=== PATIENT | female | born 1990 | race Caucasian/White ===

== ENCOUNTER 2018-11-19 19:00 | Inpatient (IN) | payer OTHER ==
[2018-11-19 20:02] LABS: ADD UMIC NO; UR ASCORBIC ACID NEGATIVE (NEGATIVE); UR BILIRUBIN (Dip) NEGATIVE (NEGATIVE); UR BLOOD (Dip) NEGATIVE (NEGATIVE); UR CLARITY CLEAR (CLEAR); UR COLOR STRAW (YELLOW); UR GLUCOSE (Dip) NEGATIVE (NEGATIVE); UR KETONES (Dip) NEGATIVE (NEGATIVE); UR LEUKOCYTE ESTERASE (Dip) NEGATIVE Leu/ul (NEGATIVE); UR NITRITE (Dip) NEGATIVE (NEGATIVE); UR SPECIFIC GRAVITY (Dip) 1.009 (1.003-1.030); UR TOTAL PROTEIN (Dip) NEGATIVE (NEGATIVE); UR UROBILINOGEN (Dip) NEGATIVE (NEGATIVE)
[2018-11-19] MEDS ORDERED: METOCLOPRAMIDE 10 MG INJ IV (22:00)
[2018-11-19] MEDS ORDERED: ONDANSETRON 4 MG INJ IV (22:00)
[2018-11-19] MEDS ORDERED: DIPHENHYDRAMINE 25 MG CAP PO (22:00)
[2018-11-19] MEDS ORDERED: ACETAMINOPHEN 325 MG TAB PO (22:00)
[2018-11-19] MEDS: LACTATED RINGER'S 1,000 ML IV (22:18)
[2018-11-19 22:24] LABS: ADD MAN DIFF? NO
[2018-11-19 22:28] LABS: BASOPHILS % 0.1 % (0.0-2.0); EOSINOPHILS # 0.2 10^3/ul (0.0-0.5); EOSINOPHILS % 1.9 % (0.0-7.0); HEMOGLOBIN 12.6 g/dl (12.0-16.0); LYMPHOCYTES # 2.1 10^3/ul (0.8-2.9); LYMPHOCYTES % 24.2 % (15.0-51.0); MEAN CORPUSCULAR HEMOGLOBIN 31.7 pg (29.0-33.0); MEAN CORPUSCULAR HGB CONC 34.1 g/dl (32.0-37.0); MONOCYTE # 0.6 10^3/ul (0.3-0.9); MONOCYTES % 7.4 % (0.0-11.0); NEUTROPHIL # 5.7 10^3/ul (1.6-7.5); NEUTROPHILS % 65.9 % (39.0-77.0); PLATELET COUNT 175 10^3/UL (140-415); RED BLOOD COUNT 3.98 10^6/ul (4.20-5.40); RED CELL DISTRIBUTION WIDTH 12.5 % (11.5-14.5)
[2018-11-19 22:28] LABS: WHITE BLOOD COUNT 8.6 10^3/ul (4.8-10.8)
[2018-11-19 22:44] LABS: ALANINE AMINOTRANSFERASE 20 IU/L (13-69); ALBUMIN 3.6 g/dl (3.3-4.9); ALBUMIN/GLOBULIN RATIO 1.16; ALKALINE PHOSPHATASE 85 IU/L (42-121); ANION GAP 12 (5-13); ASPARTATE AMINO TRANSFERASE 23 IU/L (15-46); BILIRUBIN,INDIRECT 0.1 mg/dl (0-1.1); BILIRUBIN,TOTAL 0.1 mg/dl (0.2-1.3); BLOOD UREA NITROGEN 7 mg/dl (7-20); CALCIUM 9.9 mg/dl (8.4-10.2); CARBON DIOXIDE 23 mmol/L (21-31); CHLORIDE 104 mmol/L (97-110); CREATININE 0.54 mg/dl (0.44-1.00); Estimated GFR > 60 mL/min (>60); GLUCOSE 85 mg/dl (70-220); POTASSIUM 3.8 mmol/L (3.5-5.1); SODIUM 139 mmol/L (135-144); TOTAL PROTEIN 6.7 g/dl (6.1-8.1)
[2018-11-20] MEDS: AL HYDROX/MG HYDROX/SIMETH 30 ML CUP PO ×3 (00:57→18:37)
[2018-11-20] MEDS: LACTATED RINGER'S 1,000 ML IV ×3 (03:27→18:37)
[2018-11-20] MEDS: PRENATAL VITAMIN PO (10:18)
[2018-11-20] MEDS: URSODIOL 300 MG CAP PO ×2 (12:04→21:13)
[2018-11-21] MEDS: LACTATED RINGER'S 1,000 ML IV (04:34)
[2018-11-24 20:03] LABS: CHENODEOXYCHOLIC ACID <0.5 umol/L (< OR = 3.1); CHOLIC ACID <0.5 umol/L (< OR = 1.8); DEOXYCHOLIC ACID <0.5 umol/L (< OR = 2.4); TOTAL BILE ACIDS <1.5 umol/L (< OR = 6.8)
== END 2018-11-21 08:45 | disposition home or self-care (01) | DRG 833 ==
LOC: OBT 19:00 → L-D 11-20 00:51 → OBT 21:58 → L-D 21:52
DX: O36.8130 Decreased fetal movements, third trimester, not applicable or unspecified (principal); Z3A.36 36 weeks gestation of pregnancy; O26.893 Other specified pregnancy related conditions, third trimester; L29.9 Pruritus, unspecified
CPT/HCPCS: 76815; 76818; 76820; 80053; 81003; 83789; 85025

== ENCOUNTER 2018-11-29 20:21 | Outpatient (CLI) | payer OTHER | END 2018-11-29 23:45 | disposition home or self-care (01) | LOC: OBT 20:21 → L-D 20:21 | DX: O36.8130 Decreased fetal movements, third trimester, not applicable or unspecified (principal); Z3A.37 37 weeks gestation of pregnancy | CPT/HCPCS: 76818 ==

== ENCOUNTER 2018-12-09 10:14 | Outpatient (CLI) | payer OTHER | END 2018-12-09 12:46 | disposition home or self-care (01) | LOC: OBT 10:14 → L-D 10:14 → OBT 12:46 | DX: O47.1 False labor at or after 37 completed weeks of gestation (principal); O36.8130 Decreased fetal movements, third trimester, not applicable or unspecified; Z3A.39 39 weeks gestation of pregnancy | CPT/HCPCS: 76815; 76818 ==

== ENCOUNTER 2018-12-10 06:05 | Inpatient (IN) | payer OTHER ==
[2018-12-10] MEDS ORDERED: BUTORPHANOL 2 MG INJ IV (07:00)
[2018-12-10] MEDS ORDERED: METHYLERGONOVINE 0.2 MG INJ IM (07:00)
[2018-12-10] MEDS ORDERED: CARBOPROST 250 MCG INJ IM (07:00)
[2018-12-10] MEDS ORDERED: MISOPROSTOL 200 MCG TAB PR (07:00)
[2018-12-10] MEDS ORDERED: OXYTOCIN 30 UNITS/LR 500 ML IV ×2 (07:00)
[2018-12-10] MEDS ORDERED: LIDOCAINE 1% (MPF) 30 ML INJ INJ (07:00)
[2018-12-10] MEDS ORDERED: IBUPROFEN 600 MG TAB PO (07:00)
[2018-12-10 07:54] LABS: ADD MAN DIFF? NO
[2018-12-10 07:57] LABS: BASOPHILS % 0.2 % (0.0-2.0); EOSINOPHILS # 0.1 10^3/ul (0.0-0.5); EOSINOPHILS % 1.4 % (0.0-7.0); HEMATOCRIT 37.9 % (37.0-47.0); HEMOGLOBIN 12.8 g/dl (12.0-16.0); LYMPHOCYTES # 1.6 10^3/ul (0.8-2.9); LYMPHOCYTES % 17.5 % (15.0-51.0); MEAN CORPUSCULAR HEMOGLOBIN 31.7 pg (29.0-33.0); MEAN CORPUSCULAR HGB CONC 33.8 g/dl (32.0-37.0); MEAN CORPUSCULAR VOLUME 93.8 fl (82.0-101.0); MEAN PLATELET VOLUME 11.3 fl (7.4-10.4); MONOCYTE # 0.6 10^3/ul (0.3-0.9); MONOCYTES % 6.9 % (0.0-11.0); NEUTROPHIL # 6.8 10^3/ul (1.6-7.5); NEUTROPHILS % 73.6 % (39.0-77.0); PLATELET COUNT 173 10^3/UL (140-415); RED BLOOD COUNT 4.04 10^6/ul (4.20-5.40); RED CELL DISTRIBUTION WIDTH 12.6 % (11.5-14.5)
[2018-12-10 07:57] LABS: WHITE BLOOD COUNT 9.2 10^3/ul (4.8-10.8)
[2018-12-10] MEDS: LACTATED RINGER'S 1,000 ML IV ×6 (08:09→22:58)
[2018-12-10 08:16] LABS: INR 0.89; PROTIME 12.1 Sec (11.9-14.9); PT RATIO 0.9
[2018-12-10 08:17] LABS: PARTIAL THROMBOPLASTIN TIME 25.2 Sec (23.0-35.0)
[2018-12-10] MEDS: MISOPROSTOL 50 MCG CAPSULE PO ×2 (09:22→14:28)
[2018-12-10 16:43] LABS: RAPID PLASMA REAGIN NONREACTIVE (NR)
[2018-12-10] MEDS ORDERED: NALOXONE (0.4 MG/ML) INJ IV (18:30)
[2018-12-10] MEDS ORDERED: KETOROLAC 30 MG INJ IV (18:30)
[2018-12-10] MEDS ORDERED: ZOLPIDEM 5 MG TAB PO (18:30)
[2018-12-10] MEDS ORDERED: HYDROmorphONE 0.5 MG/0.5 ML SYG IV ×2 (18:30)
[2018-12-10] MEDS ORDERED: FENTAnyl 2MCG/ML-ROPIV 0.2% 100 ML BAG EPI (18:30)
[2018-12-10] MEDS ORDERED: DIPHENHYDRAMINE 50 MG INJ IV (18:30)
[2018-12-10] MEDS: ONDANSETRON 4 MG INJ IV (19:47)
[2018-12-10] MEDS: FAMOTIDINE 20 MG INJ IV (20:05)
[2018-12-11] MEDS: OXYTOCIN 30 UNITS/LR 500 ML IV ×3 (00:02→06:36)
[2018-12-11] MEDS: CEFAZOLIN 2 GM/50 ML (PMX) 50 ML IVPB (02:50)
[2018-12-11] MEDS: HYDROCODONE/APAP (5/325) TAB PO (03:23)
[2018-12-11] MEDS ORDERED: DIPHENHYDRAMINE 25 MG CAP PO (03:30)
[2018-12-11] MEDS ORDERED: OXYTOCIN 30 UNITS/LR 500 ML IV (03:30)
[2018-12-11] MEDS ORDERED: MISOPROSTOL 200 MCG TAB PR (03:30)
[2018-12-11] MEDS ORDERED: ACETAMINOPHEN 325 MG TAB PO (03:30)
[2018-12-11] MEDS ORDERED: morphine 2 MG INJ IV (03:30)
[2018-12-11] MEDS ORDERED: METHYLERGONOVINE 0.2 MG TAB PO (03:30)
[2018-12-11] MEDS ORDERED: ZOLPIDEM 5 MG TAB PO (03:30)
[2018-12-11] MEDS ORDERED: ONDANSETRON 4 MG INJ IV (03:30)
[2018-12-11] MEDS ORDERED: CARBOPROST 250 MCG INJ IM (03:30)
[2018-12-11] MEDS ORDERED: METHYLERGONOVINE 0.2 MG INJ IM (03:30)
[2018-12-11] MEDS ORDERED: NACL 0.9% 3 ML SYG IV (03:30)
[2018-12-11] MEDS: LANOLIN HPA 1 PKT TOP (06:06)
[2018-12-11] MEDS: IBUPROFEN 600 MG TAB PO ×3 (06:06→18:00)
[2018-12-11] MEDS: WITCH HAZEL/GLYCERIN PAD PR (06:06)
[2018-12-11 08:27] LABS: HEMATOCRIT 32.9 % (37.0-47.0); HEMOGLOBIN 11.3 g/dl (12.0-16.0)
[2018-12-11] MEDS: RANITIDINE 150 MG TAB PO ×2 (09:00→21:00)
[2018-12-11] MEDS: SENNA/DOCUSATE NA (8.6MG/50MG) TAB PO (10:36)
[2018-12-12] MEDS: IBUPROFEN 600 MG TAB PO ×3 (01:47→12:00)
[2018-12-12] MEDS: SENNA/DOCUSATE NA (8.6MG/50MG) TAB PO ×2 (01:47→12:20)
[2018-12-12] MEDS: RANITIDINE 150 MG TAB PO (09:00)
== END 2018-12-12 17:05 | disposition home or self-care (01) | DRG 807 ==
LOC: L-D 06:05 → PP1 12-11 03:58 → L-D 14:00
PROVIDERS: Obstetrics & Gynecology
PROC: 10E0XZZ Delivery of Products of Conception, External Approach (ICD-10-PCS; principal; 2018-12-11)
PROC: 0W8NXZZ Division of Female Perineum, External Approach (ICD-10-PCS; 2018-12-11)
DX: O36.63X0 Maternal care for excessive fetal growth, third trimester, not applicable or unspecified (principal); Z37.0 Single live birth; O76 Abnormality in fetal heart rate and rhythm complicating labor and delivery; O69.81X0 Labor and delivery complicated by cord around neck, without compression, not applicable or unspecified; O70.1 Second degree perineal laceration during delivery; Z3A.39 39 weeks gestation of pregnancy
CPT/HCPCS: 62319; 85014; 85018; 85025; 85610; 85730; 86592; 86850; 86900; 86901; 99464